=== PATIENT | female | born 1975 | race Caucasian/White ===

== ENCOUNTER 2018-01-29 08:48 | Outpatient (CLI) | payer BC | END 2018-01-29 23:59 | disposition home or self-care (01) | LOC: RAD 08:48 | PROVIDERS: ATTEND Obstetrics & Gynecology | DX: R58 Hemorrhage, not elsewhere classified (principal) | CPT/HCPCS: 76856 ==

== ENCOUNTER 2019-01-22 07:27 | Outpatient (CLI) | payer OTHER ==
[2019-01-22 08:26] LABS: BASOPHILS % (AUTO) 0.5 % (0-1); EOSINOPHILS # (AUTO) 0.1 X10'3 (0-0.9); EOSINOPHILS % (AUTO) 0.9 % (0-6); HEMATOCRIT 40.3 % (35.0-45.0); HEMOGLOBIN 13.7 g/dl (12.0-16.0); LYMPHOCYTES # (AUTO) 2.5 X10'3 (1.1-4.8); LYMPHOCYTES % (AUTO) 27.3 % (21-51); MEAN CORPUSCULAR HEMOGLOBIN 30.2 PG (27.0-31.0); MEAN CORPUSCULAR HGB CONC 33.9 g/dL (33.0-36.5); MEAN PLATELET VOLUME 8.4 FL (7.4-10.4); MONOCYTES # (AUTO) 0.6 X10'3 (0-0.9); MONOCYTES % (AUTO) 6.8 % (2-12); NEUTROPHILS # (AUTO) 5.8 X10'3 (1.8-7.7); NEUTROPHILS % (AUTO) 64.5 % (42-75); PLATELET COUNT 316 X10'3 (140-440); RED BLOOD COUNT 4.53 X10'6 (4.20-5.60); RED CELL DISTRIBUTION WIDTH 13.3 % (11.5-14.5); WHITE BLOOD COUNT 9.1 X10'3 (4.5-11.0)
[2019-01-22 08:40] LABS: ALANINE AMINOTRANSFERASE 35 U/L (12-78); ALBUMIN 3.4 G/DL (3.4-5.0); ALBUMIN/GLOBULIN RATIO 0.7 (1.1-1.5); ALKALINE PHOSPHATASE 36 IU/L (46-116); ANION GAP 6 (8-16); ASPARTATE AMINO TRANSFERASE 20 U/L (10-37); BILIRUBIN,TOTAL 0.3 MG/DL (0.1-1.0); BLOOD UREA NITROGEN 9 MG/DL (7-18); CALCIUM 8.8 MG/DL (8.5-10.1); CHLORIDE 106 MMOL/L (99-107); CHOLESTEROL 183 MG/DL (0-200); CREATININE 0.82 MG/DL (0.40-0.90); GLUCOSE 115 MG/DL (70-104); HDL CHOLESTEROL 61 MG/DL (35-60); LDL CHOLESTEROL 117 MG/DL (50-100); POTASSIUM 4.1 MMOL/L (3.5-5.1); SODIUM 139 MMOL/L (135-145); TOTAL CARBON DIOXIDE 27.4 MMOL/L (24-32); TOTAL PROTEIN 8.1 G/DL (6.4-8.2); TRIGLYCERIDES 58 MG/DL (20-135); eGFR 76 ML/MIN
== END 2019-01-22 23:59 | disposition home or self-care (01) ==
LOC: LAB 07:27
PROVIDERS: ATTEND Specialist
DX: Z02.0 Encounter for examination for admission to educational institution (principal)
CPT/HCPCS: 36415; 80053; 80061; 84443; 85025

== ENCOUNTER 2019-12-23 11:54 | Emergency (ER) | payer BC, OTHER ==
[~2019-12-23] VITALS: Ht 160 cm; Wt 65.8 kg
[2019-12-23 12:04] VITALS: BP 138/91
[2019-12-23] MEDS ORDERED: NAPR-56 PO (12:44)
[2019-12-23] MEDS ORDERED: HYDR-4383 PO (12:44)
[2019-12-23] MEDS ORDERED: ketorolac trometh. 30mg/ml inj. IV ONE (12:45)
[2019-12-23] MEDS ORDERED: HYDROcodone/acetaminophen 5mg/325mg tablet PO ONE (12:45)
[2019-12-23] MEDS ORDERED: ketorolac trometh inj. 60 MG/2 ML VIAL IM ONE ×2 (12:45→13:06)
== END 2019-12-23 13:35 | disposition home or self-care (01) ==
LOC: ER 11:54
DX: S93.492A Sprain of other ligament of left ankle, initial encounter (principal); R07.89 Other chest pain; Z79.899 Other long term (current) drug therapy; W10.8XXA Fall (on) (from) other stairs and steps, initial encounter; Y93.89 Activity, other specified; Y92.89 Other specified places as the place of occurrence of the external cause; Y99.8 Other external cause status
CPT/HCPCS: 73610; 96372; 99284; J1885

== ENCOUNTER 2020-06-01 11:19 | Outpatient (CLI) | payer BC ==
[~2020-06-01 11:19] MED LIST: HYDR-4383 PO
[2020-06-01 12:16] LABS: BASOPHILS # (AUTO) 0.1 X10'3 (0-0.2); BASOPHILS % (AUTO) 0.7 % (0-1); EOSINOPHILS # (AUTO) 0.1 X10'3 (0-0.9); EOSINOPHILS % (AUTO) 1.1 % (0-6); HEMATOCRIT 40.2 % (35.0-45.0); HEMOGLOBIN 13.4 g/dl (12.0-16.0); LYMPHOCYTES # (AUTO) 3.3 X10'3 (1.1-4.8); LYMPHOCYTES % (AUTO) 39.7 % (21-51); MEAN CORPUSCULAR HEMOGLOBIN 29.8 PG (27.0-31.0); MEAN CORPUSCULAR HGB CONC 33.4 g/dL (33.0-36.5); MEAN CORPUSCULAR VOLUME 89.4 FL (78-98); MONOCYTES # (AUTO) 0.7 X10'3 (0-0.9); MONOCYTES % (AUTO) 8.6 % (2-12); NEUTROPHILS # (AUTO) 4.2 X10'3 (1.8-7.7); NEUTROPHILS % (AUTO) 49.9 % (42-75); PLATELET COUNT 291 X10'3 (140-440); RED CELL DISTRIBUTION WIDTH 13.4 % (11.5-14.5); WHITE BLOOD COUNT 8.4 X10'3 (4.5-11.0)
[2020-06-01 12:24] LABS: HEMOGLOBIN A1C 5.8 % (4.5-6.2)
[2020-06-01 12:39] LABS: ALANINE AMINOTRANSFERASE 25 U/L (12-78); ALBUMIN 3.6 G/DL (3.4-5.0); ALBUMIN/GLOBULIN RATIO 0.8 (1.1-1.5); ALKALINE PHOSPHATASE 47 IU/L (46-116); ANION GAP 8 (8-16); ASPARTATE AMINO TRANSFERASE 15 U/L (10-37); BILIRUBIN,TOTAL 0.3 MG/DL (0.1-1.0); BLOOD UREA NITROGEN 16 MG/DL (7-18); CALCIUM 9.1 MG/DL (8.5-10.1); CHLORIDE 105 MMOL/L (99-107); CHOL/HDL RATIO 3.1 (0.00-4.99); CHOLESTEROL 174 MG/DL (0-200); CREATININE 0.64 MG/DL (0.40-0.90); GLUCOSE 98 MG/DL (70-104); HDL CHOLESTEROL 57 MG/DL (35-60); LDL CHOLESTEROL 96 MG/DL (50-100); SODIUM 140 MMOL/L (135-145); TOTAL CARBON DIOXIDE 26.7 MMOL/L (24-32); TOTAL PROTEIN 7.9 G/DL (6.4-8.2); TRIGLYCERIDES 115 MG/DL (20-135); eGFR > 90 ML/MIN
== END 2020-06-01 23:59 | disposition home or self-care (01) ==
LOC: LAB 11:19
PROVIDERS: ATTEND Physician Assistant
DX: Z79.899 Other long term (current) drug therapy (principal)
CPT/HCPCS: 36415; 80053; 80061; 82306; 83036; 84443; 85025

== ENCOUNTER 2021-12-16 09:20 | Outpatient (CLI) | payer BC ==
[2021-12-16 12:39] LABS: CLARITY,URINE CLEAR (Clear); COLOR,URINE YELLOW (Yellow); GLUCOSE, URINE NEGATIVE (Neg); KETONES,URINE 15 mg/dl (Neg); LEUKOCYTE ESTERASE ,URINE NEGATIVE (Neg); NITRITES, URINE NEGATIVE (Neg); OCCULT BLOOD,URINE TRACE-INTACT (Neg); PROTEIN,URINE NEGATIVE (Neg); UROBILINOGEN,URINE 0.2 E.U/dL (0.2-1.0)
[2021-12-16 12:44] LABS: UA COLLECTION TYPE CLN CATCH MIDSTREAM
[2021-12-16 12:45] LABS: BACTERIA,URINE NONE SEEN /HPF (Neg); MUCUS STRANDS NONE SEEN /LPF (Neg); RBC,URINE 0-2 /HPF (0-2); SQUAMOUS EPITHELIAL CELL,UR MODERATE /LPF (FEW); WBC,URINE NONE SEEN /HPF (0-4)
[2021-12-16 12:52] LABS: BASOPHILS % (AUTO) 0.7 % (0-1); EOSINOPHILS % (AUTO) 0.6 % (0-6); HEMATOCRIT 39.7 % (35.0-45.0); HEMOGLOBIN 13.2 g/dl (12.0-16.0); MEAN CORPUSCULAR HEMOGLOBIN 29.7 PG (27.0-31.0); MEAN CORPUSCULAR HGB CONC 33.3 g/dL (33.0-36.5); MEAN CORPUSCULAR VOLUME 89.3 FL (78-98); MEAN PLATELET VOLUME 8.5 FL (7.4-10.4); MONOCYTES # (AUTO) 0.6 X10'3 (0-0.9); MONOCYTES % (AUTO) 8.1 % (2-12); NEUTROPHILS # (AUTO) 3.2 X10'3 (1.8-7.7); NEUTROPHILS % (AUTO) 46.6 % (42-75); PLATELET COUNT 277 X10'3 (140-440); RED BLOOD COUNT 4.44 X10'6 (4.20-5.60); RED CELL DISTRIBUTION WIDTH 13.3 % (11.5-14.5); WHITE BLOOD COUNT 6.8 X10'3 (4.5-11.0)
[2021-12-16 13:04] LABS: ALANINE AMINOTRANSFERASE 19 U/L (12-78); ALBUMIN 3.8 G/DL (3.4-5.0); ALKALINE PHOSPHATASE 42 IU/L (46-116); ANION GAP 9 (8-16); ASPARTATE AMINO TRANSFERASE 12 U/L (10-37); BILIRUBIN,TOTAL 0.5 MG/DL (0.1-1.0); BLOOD UREA NITROGEN 10 MG/DL (7-18); BUN/CREATININE RATIO 20.8 (6.6-38.0); CALCIUM 8.5 MG/DL (8.5-10.1); CHLORIDE 103 MMOL/L (99-107); CHOL/HDL RATIO 2.6 (0.00-4.99); CHOLESTEROL 177 MG/DL (0-200); CREATININE 0.48 MG/DL (0.40-0.90); GLUCOSE 85 MG/DL (70-104); HDL CHOLESTEROL 69 MG/DL (35-60); LDL CHOLESTEROL 90 MG/DL (50-100); SODIUM 138 MMOL/L (135-145); TOTAL CARBON DIOXIDE 25.8 MMOL/L (24-32); TOTAL PROTEIN 7.8 G/DL (6.4-8.2); TRIGLYCERIDES 45 MG/DL (20-135); eGFR > 90 ML/MIN
== END 2021-12-16 23:59 | disposition home or self-care (01) ==
LOC: LAB 09:20
PROVIDERS: ATTEND Family Medicine
DX: Z00.00 Encounter for general adult medical examination without abnormal findings (principal)
CPT/HCPCS: 36415; 80053; 80061; 81001; 82306; 84443; 85025

== ENCOUNTER 2022-01-31 07:16 | Emergency (ER) | payer BC ==
[~2022-01-31] VITALS: Ht 170.2 cm; Wt 61.3 kg
--- NOTE | 2022-01-31 07:29 | NUR ---
PT STATES, THROAT PAIN ABOUT A 6/10.
--- NOTE | 2022-01-31 07:40 | NUR ---
ATTEMPT EKG, PT TO CT.
[2022-01-31 08:56] LABS: BASOPHILS # (AUTO) 0.1 X10'3 (0-0.2); BASOPHILS % (AUTO) 0.8 % (0-1); EOSINOPHILS % (AUTO) 0.4 % (0-6); HEMATOCRIT 38.8 % (35.0-45.0); HEMOGLOBIN 13.4 g/dl (12.0-16.0); LYMPHOCYTES # (AUTO) 2.1 X10'3 (1.1-4.8); MEAN CORPUSCULAR HEMOGLOBIN 30.1 PG (27.0-31.0); MEAN CORPUSCULAR HGB CONC 34.5 g/dL (33.0-36.5); MEAN CORPUSCULAR VOLUME 87.5 FL (78-98); MEAN PLATELET VOLUME 8.2 FL (7.4-10.4); MONOCYTES # (AUTO) 0.7 X10'3 (0-0.9); MONOCYTES % (AUTO) 7.3 % (2-12); NEUTROPHILS # (AUTO) 6.7 X10'3 (1.8-7.7); NEUTROPHILS % (AUTO) 69.5 % (42-75); PLATELET COUNT 266 X10'3 (140-440); RED BLOOD COUNT 4.43 X10'6 (4.20-5.60); RED CELL DISTRIBUTION WIDTH 13.2 % (11.5-14.5); WHITE BLOOD COUNT 9.6 X10'3 (4.5-11.0)
[2022-01-31 09:04] LABS: ALANINE AMINOTRANSFERASE 18 U/L (12-78); ALBUMIN 3.8 G/DL (3.4-5.0); ANION GAP 4 (8-16); ASPARTATE AMINO TRANSFERASE 14 U/L (10-37); BILIRUBIN,TOTAL 0.4 MG/DL (0.1-1.0); BLOOD UREA NITROGEN 14 MG/DL (7-18); BUN/CREATININE RATIO 29.2 (6.6-38.0); CALCIUM 8.8 MG/DL (8.5-10.1); CHLORIDE 105 MMOL/L (99-107); CREATININE 0.48 MG/DL (0.40-0.90); GLUCOSE 107 MG/DL (70-104); POTASSIUM 4.4 MMOL/L (3.5-5.1); SODIUM 138 MMOL/L (135-145); TOTAL CARBON DIOXIDE 28.6 MMOL/L (24-32); TOTAL PROTEIN 7.7 G/DL (6.4-8.2); eGFR > 90 ML/MIN
[2022-01-31 09:31] LABS: ALKALINE PHOSPHATASE 55 IU/L (46-116)
[2022-01-31] MEDS ORDERED: GADOTERATE MEGLUMINE 7.5 MMOL/15 ML VIAL IV ONE (09:59)
--- NOTE | 2022-01-31 12:51 | NUR ---
Pt upstairs off floor, Dr. Trent ok it. Dr. Trent oked pt to eat at this time
--- NOTE | 2022-01-31 18:09 | NUR ---
Pt is resting in bed, no distress noted at this time.
[2022-01-31] MEDS ORDERED: ondansetron/PF 4mg/2ml inj IV ONE (19:25)
--- NOTE | 2022-02-01 06:39 | NUR ---
Pt is sleeping, no distress noted at this time.
[2022-02-01] MEDS ORDERED: acetaminophen 325mg tablet PO ONE (07:40)
[2022-02-01] MEDS ORDERED: proCHLORperazine 10 MG/2 ml inj IV ONE (10:35)
--- NOTE | 2022-02-01 13:30 | NUR ---
PT SLEEPING COMFORTABLY. DID NOT WAKE UP, WILL REASSESS LATER
--- NOTE | 2022-02-01 16:00 | NUR ---
PT AWAKE AND ALERT, NO ACUTE DISTRESS NOTED, PT UPDATED "STILL AWAITING BED AT [place]". NO CONCERNS
--- NOTE | 2022-02-01 18:10 | NUR ---
PT OFF FLOOR, WALKING AROUND WITH FAMILY- OK PER [employer]
[2022-02-01] MEDS ORDERED: ondansetron 4mg rapidly disintigrating tab PO ONE (21:45)
[2022-02-01 22:30] VITALS: BP 127/72
== END 2022-02-01 22:33 | disposition short-term general hospital (02) ==
LOC: ER 07:17
DX: D33.3 Benign neoplasm of cranial nerves (principal); Z20.822 Contact with and (suspected) exposure to COVID-19
CPT/HCPCS: 36415; 70450; 70486; 70553; 71045; 80053; 85025; 87811; 96374; 96375; 99285; A9575; J0780; J2405

== ENCOUNTER 2022-02-11 06:58 | Emergency (ER) | payer BC ==
[~2022-02-11] VITALS: Ht 170.2 cm; Wt 61.0 kg
--- NOTE | 2022-02-11 07:24 | NUR ---
patient complaining of waves of nausea. Dr. Fry updated. Per MD order, will give ativan.
[2022-02-11] MEDS ORDERED: LORazepam 2 mg/ml vial IV ONE (07:25)
[2022-02-11 09:00] LABS: BASOPHILS # (AUTO) 0.1 X10'3 (0-0.2); BASOPHILS % (AUTO) 0.3 % (0-1); EOSINOPHILS % (AUTO) 0 % (0-6); HEMATOCRIT 43.2 % (35.0-45.0); HEMOGLOBIN 14.9 g/dl (12.0-16.0); LYMPHOCYTES # (AUTO) 3.1 X10'3 (1.1-4.8); LYMPHOCYTES % (AUTO) 18.4 % (21-51); MEAN CORPUSCULAR HEMOGLOBIN 29.8 PG (27.0-31.0); MEAN CORPUSCULAR HGB CONC 34.6 g/dL (33.0-36.5); MEAN CORPUSCULAR VOLUME 86.3 FL (78-98); MEAN PLATELET VOLUME 9.1 FL (7.4-10.4); MONOCYTES # (AUTO) 1.1 X10'3 (0-0.9); MONOCYTES % (AUTO) 6.3 % (2-12); NEUTROPHILS # (AUTO) 12.8 X10'3 (1.8-7.7); PLATELET COUNT 324 X10'3 (140-440); RED BLOOD COUNT 5.01 X10'6 (4.20-5.60); RED CELL DISTRIBUTION WIDTH 12.9 % (11.5-14.5)
[2022-02-11 09:13] LABS: ALANINE AMINOTRANSFERASE 87 U/L (12-78); ALBUMIN 3.4 G/DL (3.4-5.0); ALBUMIN/GLOBULIN RATIO 0.8 (1.1-1.5); ALKALINE PHOSPHATASE 46 IU/L (46-116); ANION GAP 10 (8-16); ASPARTATE AMINO TRANSFERASE 22 U/L (10-37); BILIRUBIN,TOTAL 0.5 MG/DL (0.1-1.0); BLOOD UREA NITROGEN 18 MG/DL (7-18); CALCIUM 9.3 MG/DL (8.5-10.1); CHLORIDE 97 MMOL/L (99-107); CREATININE 0.72 MG/DL (0.40-0.90); GLUCOSE 175 MG/DL (70-104); POTASSIUM 4.2 MMOL/L (3.5-5.1); SODIUM 132 MMOL/L (135-145); TOTAL CARBON DIOXIDE 25.1 MMOL/L (24-32); TOTAL PROTEIN 7.6 G/DL (6.4-8.2); eGFR 87 ML/MIN
[2022-02-11 09:15] LABS: ETHANOL < 0.010 GM/DL (0.0-0.010); MAGNESIUM 2.3 MG/DL (1.5-2.4)
--- NOTE | 2022-02-11 09:26 | NUR ---
LACERATION WASHED OUT.
[2022-02-11] MEDS ORDERED: LIDOCAINE 1%/EPI 1:100,000 inj. 10 ML multi-dose vial IJ ONE (10:25)
[2022-02-11] MEDS ORDERED: HYDROcodone/acetaminophen 5mg/325mg tablet PO ONE (10:50)
[2022-02-11] MEDS ORDERED: BISA10SU60 RC (11:16)
[2022-02-11 11:37] VITALS: BP 115/83
== END 2022-02-11 11:38 | disposition home or self-care (01) ==
LOC: ER 06:59
DX: S01.81XA Laceration without foreign body of other part of head, initial encounter (principal); S30.0XXA Contusion of lower back and pelvis, initial encounter; M54.59 Other low back pain; K59.00 Constipation, unspecified; W19.XXXA Unspecified fall, initial encounter; Y93.89 Activity, other specified; Y92.89 Other specified places as the place of occurrence of the external cause; Y99.8 Other external cause status
CPT/HCPCS: 12011; 70450; 72220; 80053; 80320; 83735; 84484; 85025; 93005; 96374; 99285; J2060; J7030; A6449

== ENCOUNTER 2022-05-04 09:08 | Day surgery (SDC) | payer BC ==
[2022-05-04] VITALS (7 sets, daily range): BP systolic 101–149; BP diastolic 75–89
[~2022-05-04] VITALS: Ht 170.2 cm; Wt 52.5 kg
[~2022-05-04 09:08] MED LIST changes: +BISA10SU60 RC
[2022-05-04] MEDS ORDERED: normal saline 1000ml 1,000 ML IV PRN (09:30)
[2022-05-04 10:10] LABS: BASOPHILS % (AUTO) 0.2 % (0-1); EOSINOPHILS % (AUTO) 0.1 % (0-6); HEMATOCRIT 30.3 % (35.0-45.0); HEMOGLOBIN 9.8 g/dl (12.0-16.0); LYMPHOCYTES # (AUTO) 1.3 X10'3 (1.1-4.8); LYMPHOCYTES % (AUTO) 10.6 % (21-51); MEAN CORPUSCULAR HEMOGLOBIN 31.5 PG (27.0-31.0); MEAN CORPUSCULAR HGB CONC 32.4 g/dL (33.0-36.5); MEAN CORPUSCULAR VOLUME 97.3 FL (78-98); MEAN PLATELET VOLUME 7.5 FL (7.4-10.4); MONOCYTES # (AUTO) 1.1 X10'3 (0-0.9); MONOCYTES % (AUTO) 8.9 % (2-12); NEUTROPHILS # (AUTO) 10.2 X10'3 (1.8-7.7); NEUTROPHILS % (AUTO) 80.2 % (42-75); PLATELET COUNT 273 X10'3 (140-440); RED BLOOD COUNT 3.12 X10'6 (4.20-5.60); RED CELL DISTRIBUTION WIDTH 20.6 % (11.5-14.5); WHITE BLOOD COUNT 12.8 X10'3 (4.5-11.0)
[2022-05-04] MEDS ORDERED: FAMO20TA8 PO (10:13)
[2022-05-04] MEDS ORDERED: INSU100I8 SQ (10:13)
[2022-05-04] MEDS ORDERED: SULF1TAB45 PO (10:13)
[2022-05-04] MEDS ORDERED: ACYC-126 PO (10:13)
[2022-05-04] MEDS ORDERED: METO25TA6 PO (10:13)
[2022-05-04] MEDS ORDERED: DESV100T16 PO (10:13)
[2022-05-04] MEDS ORDERED: GABA-530 PO (10:13)
[2022-05-04] MEDS ORDERED: DEXA4TAB (10:13)
[2022-05-04] MEDS ORDERED: LORA-268 PO (10:13)
[2022-05-04] MEDS ORDERED: INSU100I71 SQ (10:13)
[2022-05-04] MEDS ORDERED: METF-436 PO (10:13)
[2022-05-04] MEDS ORDERED: ACET-2006 PO (10:19)
[2022-05-04 10:41] LABS: ANISOCYTOSIS 3+; PLATELET ESTIMATE NORMAL; POLYCHROMASIA 1+; TOTAL CELLS COUNTED 100
[2022-05-04] MEDS ORDERED: heparin sodium, porcine/PF 100unit/ml 5ML syringe ONE ×2 (10:49→11:31)
[2022-05-04] MEDS ORDERED: midazolam 1 mg/ML 2ml injection ONE ×2 (10:49→11:13)
[2022-05-04] MEDS ORDERED: ondansetron/PF 4mg/2ml inj ONE (10:49)
[2022-05-04] MEDS ORDERED: fentaNYL/PF 50MCG/1 ML 2ML syringe ONE (10:49)
[2022-05-04] MEDS ORDERED: normal saline 1000ml 1,000 ML IV SCH (11:15)
== END 2022-05-04 13:35 | disposition home or self-care (01) ==
LOC: SSTAY O 09:08
PROVIDERS: ATTEND Radiology Diagnostic Radiology
DX: C85.90 Non-Hodgkin lymphoma, unspecified, unspecified site (principal); E11.9 Type 2 diabetes mellitus without complications; Z79.84 Long term (current) use of oral hypoglycemic drugs; Z79.899 Other long term (current) drug therapy
CPT/HCPCS: 36415; 36561; 76937; 77001; 82948; 85025; 85610; 99152; 99153; C1769; C1788; C1894; J1642; J2250; J2405; J3010; J7030; 85007; A4620

== ENCOUNTER 2022-10-13 14:27 | Outpatient (CLI) | payer MEDICAID ==
[~2022-10-13 14:27] MED LIST changes: +ACET-2006 PO; +ACYC-126 PO; -BISA10SU60 RC; +DESV100T16 PO; +DEXA4TAB; +FAMO20TA8 PO; +GABA-530 PO; -HYDR-4383 PO; +INSU100I71 SQ; +INSU100I8 SQ; +LORA-268 PO; +METF-436 PO; +METO25TA6 PO; +SULF1TAB45 PO
[2022-10-13] MEDS ORDERED: GADOTERATE MEGLUMINE 7.5 MMOL/15 ML VIAL IV ONE (16:02)
== END 2022-10-13 23:59 | disposition home or self-care (01) ==
LOC: RAD 14:27
PROVIDERS: ATTEND Internal Medicine
DX: C85.90 Non-Hodgkin lymphoma, unspecified, unspecified site (principal); G93.89 Other specified disorders of brain; Z98.890 Other specified postprocedural states
CPT/HCPCS: 70553; A9575

== ENCOUNTER 2022-12-08 14:00 | Emergency (ER) | payer MEDICAID ==
[~2022-12-08] VITALS: Ht 170.2 cm; Wt 72.7 kg
[2022-12-08 14:05] VITALS: BP 145/121; PULSE 107; RESP 28; TEMP 97.5; O2SAT 100
== END 2022-12-08 17:56 | disposition left against medical advice (07) ==
LOC: ER 14:01
DX: S00.81XA Abrasion of other part of head, initial encounter (principal); Z53.21 Procedure and treatment not carried out due to patient leaving prior to being seen by health care provider; W19.XXXA Unspecified fall, initial encounter; Y93.89 Activity, other specified; Y92.89 Other specified places as the place of occurrence of the external cause; Y99.8 Other external cause status
CPT/HCPCS: 99281; J7030; A6449

== ENCOUNTER 2023-03-14 09:47 | Outpatient (CLI) | payer MEDICAID ==
[2023-03-14] MEDS ORDERED: GADOTERATE MEGLUMINE 7.5 MMOL/15 ML VIAL IV ONE (11:27)
== END 2023-03-14 23:59 | disposition home or self-care (01) ==
LOC: RAD 09:47
PROVIDERS: ATTEND Internal Medicine Hematology & Oncology
DX: C85.99 Non-Hodgkin lymphoma, unspecified, extranodal and solid organ sites (principal)
CPT/HCPCS: 70553; A9575

== ENCOUNTER 2023-06-27 12:38 | Outpatient (CLI) | payer MEDICAID ==
[~2023-06-27 12:38] MED LIST changes: -INSU100I71 SQ; +INSU100I98 SQ
[2023-06-27] MEDS ORDERED: GADOTERATE MEGLUMINE 7.5 MMOL/15 ML VIAL IV ONE (16:04)
== END 2023-06-27 23:59 | disposition home or self-care (01) ==
LOC: MRI 12:38
PROVIDERS: ATTEND Internal Medicine
DX: C85.89 Other specified types of non-Hodgkin lymphoma, extranodal and solid organ sites (principal); J32.8 Other chronic sinusitis
CPT/HCPCS: 70553; A9575

== ENCOUNTER 2023-07-19 14:05 | Outpatient (CLI) | payer MEDICAID | END 2023-07-19 23:59 | disposition home or self-care (01) | LOC: RAD 14:05 | PROVIDERS: ATTEND Nurse Practitioner Family | DX: Z30.431 Encounter for routine checking of intrauterine contraceptive device (principal); Z30.9 Encounter for contraceptive management, unspecified | CPT/HCPCS: 76830; 76856; 93976 ==

== ENCOUNTER 2023-09-22 14:54 | Outpatient (CLI) | payer MEDICAID ==
[2023-09-22] MEDS ORDERED: GADOTERATE MEGLUMINE 7.5 MMOL/15 ML VIAL IV ONE (16:51)
[2023-09-23] MEDS ORDERED: GADOTERATE MEGLUMINE 7.5 MMOL/15 ML VIAL IV ONE (16:51)
== END 2023-09-22 23:59 | disposition home or self-care (01) ==
LOC: MRI 14:54
PROVIDERS: ATTEND Internal Medicine Hematology & Oncology
DX: C85.99 Non-Hodgkin lymphoma, unspecified, extranodal and solid organ sites (principal); G93.89 Other specified disorders of brain; I67.82 Cerebral ischemia
CPT/HCPCS: 70553; A9575

== ENCOUNTER 2023-12-14 10:29 | Outpatient (CLI) | payer MEDICAID ==
[~2023-12-14 10:29] MED LIST changes: +GADOTERATE MEGLUMINE 7.5 MMOL/15 ML VIAL IV ONE
== END 2023-12-14 23:59 | disposition home or self-care (01) ==
LOC: MRI 10:29
PROVIDERS: ATTEND Internal Medicine Hematology & Oncology
DX: G93.89 Other specified disorders of brain (principal); C85.99 Non-Hodgkin lymphoma, unspecified, extranodal and solid organ sites
CPT/HCPCS: 70553; A9575

== ENCOUNTER 2024-03-05 12:59 | Outpatient (CLI) | payer MEDICAID ==
[~2024-03-05 12:59] MED LIST changes: -GADOTERATE MEGLUMINE 7.5 MMOL/15 ML VIAL IV ONE
== END 2024-03-05 23:59 | disposition home or self-care (01) ==
LOC: MRI 12:59
PROVIDERS: ATTEND Nurse Practitioner Family
DX: C85.99 Non-Hodgkin lymphoma, unspecified, extranodal and solid organ sites (principal); G93.89 Other specified disorders of brain
CPT/HCPCS: 70553; A9575

== ENCOUNTER 2024-06-14 13:27 | Outpatient (CLI) | payer MEDICAID ==
[2024-06-14] MEDS ORDERED: GADOTERATE MEGLUMINE 7.5 MMOL/15 ML VIAL IV ONE (20:39)
== END 2024-06-14 23:59 | disposition home or self-care (01) ==
LOC: MRI 13:27
PROVIDERS: ATTEND Internal Medicine
DX: C85.99 Non-Hodgkin lymphoma, unspecified, extranodal and solid organ sites (principal)
CPT/HCPCS: 70553; A9575